=== PATIENT | female | born 1990 | race Caucasian/White ===

== ENCOUNTER 2021-04-02 11:10 | Day surgery (SDC) | payer BC ==
[2021-04-02] VITALS (8 sets, daily range): BP systolic 110–128; BP diastolic 68–81; PULSE 62–81; TEMP 97.8–98
[~2021-04-02] VITALS: Ht 165.1 cm; Wt 90.0 kg
[2021-04-02 11:51] LABS: BASO % 0.4 % (0.0-2.0); EOS # 0.1 (0.0-0.7); EOS % 1.7 % (0-4.0); GRAN # 5.8 (1.4-6.5); GRAN % 76.7 % (42.2-75.2); HEMATOCRIT 39.4 % (37.0-47.0); HEMOGLOBIN 13.2 g/dl (12.5-16.0); LYMPH # 1.2 (1.2-3.4); LYMPH % 15.4 % (20.0-51.0); MEAN CELL VOLUME 94 fl (80.0-100.0); MEAN CORPUSCULAR HEMOGLOBIN 31 pg (27.0-31.0); MEAN CORPUSCULAR HGB CONC 34 g/dl (33.0-37.0); MONO # 0.4 (0.1-0.6); MONO % 5.7 % (1.7-9.3); PLATELET COUNT 269 K/mm3 (130-400); RED BLOOD COUNT 4.21 M/mm3 (4.10-5.30); REDCELL DISTRIBUTION WIDTH-CV 12.2 % (11.5-14.5)
[2021-04-02 11:59] LABS: ALBUMIN 4.4 gm/dL (3.5-5.0); BILIRUBIN,TOTAL 0.6 mg/dL (0.0-1.0); CALCIUM 9.4 mg/dL (8.4-10.2); CREATININE, serum 0.75 (0.52-1.25); TOTAL PROTEIN 7.6 gm/dL (6.4-8.2)
[2021-04-02 12:40] LABS: COLLECTION METHOD CLEAN CATCH
[2021-04-02 12:59] LABS: PH 9 (5-8); SQUAMOUS EPITHELIAL 0-2 /hpf; URINE APPEARANCE Clear; URINE BACTERIA None Seen /hpf; URINE BILIRUBIN Negative (NEGATIVE); URINE BLOOD Negative (NEGATIVE); URINE COLOR Yellow; URINE GLUCOSE Negative (NEGATIVE); URINE KETONE Negative (NEGATIVE); URINE LEUKOCYTE ESTERASE Negative (NEGATIVE); URINE NITRATE Negative (NEGATIVE); URINE PROTEIN(semi-quant) 1+ (NEGATIVE); URINE RBC 0-2 /hpf; URINE UROBILINOGEN Negative (NEGATIVE); URINE WBC 0-2 /hpf
--- NOTE | 2021-04-02 21:30 | NUR ---
Up to ambulate in the hallway. Ambulated approx 1000 feet without difficulty. Rating pain 5/10 to abdomen-described as "soreness"-hydrocodone given per dr order. Denies nausea. Has voided without difficulty. Tolerating ice chips/water. Denies any other needs/concerns. Call light in reach. Will monitor.
--- NOTE | 2021-04-02 23:09 | NUR ---
Called with c/o pain to abdomen-rating pain 4/10 on pain scale described as constant ache/intermittent throbbing. Tramadol given per dr order.
[2021-04-03 04:15] VITALS: BP 111/70; PULSE 64; TEMP 97.9
--- NOTE | 2021-04-03 05:37 | NUR ---
Rested well over night. Received tramadol and hydrocodone for pain. Ambulated in the hallways. Tolerated clear liquids without nausea- did not want to try anything else. Voiding without difficulty. INT to left AC flushes without difficulty. LAP sites [id number]. SCDs bilat. Call light in reach. Will monitor.
--- NOTE | 2021-04-03 06:28 | NUR ---
Called with c/o pain to abdomen-rating pain 5/10 on pain scale-described as constant throbbing. Hydrocodone given per dr order. Also provided with sandwich box per request. Will continue to monitor.
[2021-04-03 08:09] VITALS: BP 114/73; PULSE 74; TEMP 97.4
--- NOTE | 2021-04-03 08:44 | NUR ---
Pt awake and alert upon entry , has C/O pain at this time, medications given for relief. Shift assessment complete, left Pt call light in reach, bed in lowest position.
--- NOTE | 2021-04-03 09:16 | NUR ---
Initial visit; Patient thanked [employer] Operator for looking in on her and offering God's blessings and to keep her in [employer]'s prayers.
[2021-04-03 12:00] VITALS: BP 115/75; PULSE 75; TEMP 97.7
[2021-04-03 16:28] VITALS: BP 115/48; PULSE 66; TEMP 98.4
[2021-04-03] MEDS ORDERED: NORCO 325 MG-51 TAB PO (17:32)
--- NOTE | 2021-04-03 18:55 | NUR ---
Pt discharged to home, discussed discharge packet with PT, Pt escorted to entrance by PCT.
== END 2021-04-03 18:56 | disposition home or self-care (01) ==
LOC: COL.ER 11:10 → SDCO 17:03 → MEDICAL 17:03 → SDCO 04-03 18:56
PROVIDERS: Nurse Practitioner Primary Care
DX: K80.12 Calculus of gallbladder with acute and chronic cholecystitis without obstruction (principal); K82.1 Hydrops of gallbladder; F41.9 Anxiety disorder, unspecified; G89.29 Other chronic pain; M54.5 Low back pain; Z87.891 Personal history of nicotine dependence; Z79.899 Other long term (current) drug therapy
CPT/HCPCS: J1100; J1170; J1885; J1956; J2405; J2704; J3010

== ENCOUNTER 2021-05-21 16:18 | Emergency (ER) | payer BC ==
[~2021-05-21] VITALS: Ht 165.1 cm; Wt 95.5 kg
[~2021-05-21 16:18] MED LIST: NORCO 325 MG-51 TAB PO
[2021-05-21 17:13] LABS: COLLECTION METHOD CLEAN CATCH
[2021-05-21 17:19] LABS: MUCOUS Present /lpf; PH 6 (5-8); SQUAMOUS EPITHELIAL 0-2 /hpf; URINE APPEARANCE Clear; URINE BACTERIA None Seen /hpf; URINE BILIRUBIN Negative (NEGATIVE); URINE BLOOD Negative (NEGATIVE); URINE COLOR Yellow; URINE GLUCOSE Negative (NEGATIVE); URINE KETONE Negative (NEGATIVE); URINE LEUKOCYTE ESTERASE Negative (NEGATIVE); URINE NITRATE Negative (NEGATIVE); URINE PROTEIN(semi-quant) Negative (NEGATIVE); URINE RBC 0-2 /hpf
[2021-05-21 17:54] LABS: BASO % 0.4 % (0.0-2.0); EOS # 0.2 (0.0-0.7); EOS % 1.8 % (0-4.0); GRAN # 8.6 (1.4-6.5); GRAN % 75.4 % (42.2-75.2); HEMATOCRIT 38.6 % (37.0-47.0); HEMOGLOBIN 12.8 g/dl (12.5-16.0); LYMPH # 1.8 (1.2-3.4); MEAN CELL VOLUME 92 fl (80.0-100.0); MEAN CORPUSCULAR HEMOGLOBIN 31 pg (27.0-31.0); MEAN CORPUSCULAR HGB CONC 33 g/dl (33.0-37.0); MEAN PLATELET VOLUME 9.7 fl (7.4-10.4); MONO # 0.7 (0.1-0.6); MONO % 6.1 % (1.7-9.3); PLATELET COUNT 320 K/mm3 (130-400); RED BLOOD COUNT 4.18 M/mm3 (4.10-5.30)
[2021-05-21 18:07] LABS: ALANINE AMINOTRANSFERASE 22 U/L (4-34); ALBUMIN 4.1 gm/dL (3.5-5.0); ALKALINE PHOSPHATASE 61 U/L (50-136); ANION GAP 5 mmol/L (7-16); AST,SGOT 20 U/L (15-37); BILIRUBIN,TOTAL 0.2 mg/dL (0.0-1.0); BLOOD UREA NITROGEN 12 mg/dL (7-17); CALCIUM 9.3 mg/dL (8.4-10.2); CARBON DIOXIDE 23 mmol/L (22-30); CHLORIDE 109 mmol/L (98-107); CREATININE, serum 0.69 (0.52-1.25); GLUCOSE 94 mg/dL (74-106); POTASSIUM 4.1 mmol/L (3.4-5.0); SODIUM 138 mmol/L (137-145); TOTAL PROTEIN 7.3 gm/dL (6.4-8.2)
[2021-05-21 18:08] LABS: LIPASE 135 U/L (23-300)
[2021-05-21 18:09] LABS: C-REACTIVE PROTEIN < 0.5 mg/dL (0.0-0.9)
[2021-05-21 18:34] LABS: HCG,QUANTITATIVE 7780 mIU/mL (0-5)
[2021-05-21 20:01] VITALS: BP 120/75; PULSE 90; TEMP 98.4
== END 2021-05-21 20:00 | disposition home or self-care (01) ==
LOC: COL.ER 16:18
PROVIDERS: Family Medicine; Nurse Practitioner Primary Care
DX: O26.891 Other specified pregnancy related conditions, first trimester (principal); R10.31 Right lower quadrant pain; O21.9 Vomiting of pregnancy, unspecified; Z3A.00 Weeks of gestation of pregnancy not specified
CPT/HCPCS: J2550; J7030